=== PATIENT | female | born 1985 | race African-American/Black ===

== ENCOUNTER 2017-12-18 19:53 | Emergency (ER) | payer SELFPAY ==
[~2017-12-18] VITALS: Ht 154.9 cm; Wt 46.0 kg
[2017-12-18 20:14] VITALS: BP 134/71; PULSE 89; RESP 16; TEMP 99.4
[2017-12-18] MEDS ORDERED: SODIUM CHLOR 0.9% 1000 ML INJ 1,000 ML IV SCH (20:35)
[2017-12-18] MEDS ORDERED: ONDANSETRON HCL 4 MG/2 ML VIAL IVP ONE (20:45)
[2017-12-18] MEDS ORDERED: SODIUM CHLORIDE 0.9% FLUSH 10 ML FLUSH IV FLUSH PRN (20:45)
--- NOTE | 2017-12-18 20:47 | PD ---
HPI Chief Complaint: Abdominal Pain Time Seen by Provider: 20:30 Travel History International Travel<30 days: No Contact w/Intl Traveler<30days: No Traveled to known affect area: No History of Present Illness HPI 32 YO F with PMH of asthma, iron deficiency anemia presents to the ED for evaluation of 2 week history of intermittent lower abdominal pain, dysuria, nausea. Pain is described as cramping, excruciating, rate 10/10 maximally. Patient can identify no alleviating or exacerbating factors. She denies fever, chills, vomiting, changes in bowel habits, vaginal bleeding. She endorses clear vaginal discharge. She endorses history of x 4. No treatment attempted at home. PFSH Past Medical History Asthma: Yes COPD: No Diminished Hearing: No Genitourinary: Yes (HPV) Musculoskeletal: Yes (BRUSITISIS BOTH SHOULDERS) ?: Unknown LMP: 11/19/17 : 6 Para: 4 Miscarriage: 1 Ectopic : Yes Tubal Ligation: Yes Past Surgical History Section: Yes Social History Alcohol Use: Yes (OCCASIONALLY) Tobacco Use: Yes (08/21 PPD) Substance Use: No Allergies-Medications (Allergen,Severity, Reaction): Coded Allergies: mushroom (Unverified Allergy, Severe, TOUNGE SWELLS, RASH, 12/18/17) house dust (Unverified Allergy, Mild, SNEEZING, EYES WATER, 12/18/17) Reported Meds & Prescriptions Reported Meds & Active Scripts Active Metronidazole 500 Mg Tab 500 Mg PO BID 7 Days Review of Systems Except as stated in HPI: all other systems reviewed are Neg Physical Exam Narrative GENERAL: Well-nourished, well-developed thin -[place] female in no acute distress. SKIN: Focused skin assessment warm/dry. HEAD: Normocephalic. EYES: No scleral icterus. No injection or drainage. NECK: Supple, trachea midline. No JVD or lymphadenopathy. CARDIOVASCULAR: Regular rate and rhythm without murmurs, gallops, or rubs. RESPIRATORY: Breath sounds clear and equal bilaterally. No accessory muscle use. GASTROINTESTINAL: Abdomen soft, non-tender, nondistended. Tender in bilateral lower abdominal quadrants. Active bowel sounds. GENITOURINARY: Normal external genitalia without lesions or erythema. Vaginal vault without blood. Copious creamy white drainage noted. Cervical os was closed with scant creamy white drainage. Positive cervical motion tenderness. Uterus nontender and nonenlarged. Bilateral adnexa nontender without masses. MUSCULOSKELETAL: No cyanosis, or edema. BACK: Nontender without obvious deformity. No CVA tenderness. Data Data Last Documented VS Vital Signs Date Time Temp Pulse Resp B/P (MAP) Pulse Ox O2 Delivery O2 Flow Rate FiO2 12/18/17 20:19 16 12/18/17 20:14 99.4 89 134/71 (92) Orders Orders Complete Blood Count With Diff (12/18/17 20:35) Comprehensive Metabolic Panel (12/18/17 20:35) Urinalysis - C+S If Indicated (12/18/17 20:35) Iv Access Insert/Monitor (12/18/17 20:35) Ecg Monitoring (12/18/17 20:35) Oximetry (12/18/17 20:35) Ondansetron Inj (Zofran Inj) (12/18/17 20:45) Sodium Chlor 0.9% 1000 Ml Inj (Ns 1000 M (12/18/17 20:35) Sodium Chloride 0.9% Flush (Ns Flush) (12/18/17 20:45) Ed Urine Pregnancytest Poc (12/18/17 20:35) Gc And Chlamydia Pcr (12/18/17 21:44) Wet Prep Profile (12/18/17 21:44) Us Pelvis Comp W Doppler (12/18/17 ) Metronidazole (Flagyl) (12/18/17 23:15) Azithromycin Powd Pack (Zithromax Powd P (12/18/17 23:30) Ceftriaxone Inj (Rocephin Inj) (12/18/17 23:30) Lidocaine 1% Inj (50 Ml) (Xylocaine 1% I (12/18/17 23:30) Ed Discharge Order (12/18/17 23:20) Labs Laboratory Tests Test 12/18/17 20:50 12/18/17 22:58 White Blood Count 6.0 TH/MM3 Red Blood Count 3.96 MIL/MM3 Hemoglobin 10.0 GM/DL Hematocrit 30.3 % Mean Corpuscular Volume 76.7 FL Mean Corpuscular Hemoglobin 25.3 PG Mean Corpuscular Hemoglobin Concent 33.0 % Red Cell Distribution Width 16.6 % Platelet Count 319 TH/MM3 Mean Platelet Volume 7.4 FL Neutrophils (%) (Auto) 59.6 % Lymphocytes (%) (Auto) 31.1 % Monocytes (%) (Auto) 7.9 % Eosinophils (%) (Auto) 1.0 % Basophils (%) (Auto) 0.4 % Neutrophils # (Auto) 3.6 TH/MM3 Lymphocytes # (Auto) 1.9 TH/MM3 Monocytes # (Auto) 0.5 TH/MM3 Eosinophils # (Auto) 0.1 TH/MM3 Basophils # (Auto) 0.0 TH/MM3 CBC Comment DIFF FINAL Differential Comment Urine Color YELLOW Urine Turbidity HAZY Urine pH 5.5 Urine Specific [place] 1.026 Urine Protein TRACE mg/dL Urine Glucose (UA) NEG mg/dL Urine Ketones TRACE mg/dL Urine Occult Blood NEG Urine Nitrite NEG Urine Bilirubin NEG Urine Urobilinogen 2.0 MG/DL Urine Leukocyte Esterase TRACE Urine WBC 3 /hpf Urine Squamous Epithelial Cells 6 /hpf Urine Mucus FEW /lpf Microscopic Urinalysis Comment CULT NOT INDICATED Blood Urea Nitrogen 13 MG/DL Creatinine 0.75 MG/DL Random Glucose 96 MG/DL Total Protein 7.6 GM/DL Albumin 4.1 GM/DL Calcium Level 8.4 MG/DL Alkaline Phosphatase 62 U/L Aspartate Amino Transf (AST/SGOT) 15 U/L Alanine Aminotransferase (ALT/SGPT) 18 U/L Total Bilirubin 0.4 MG/DL Sodium Level 140 MEQ/L Potassium Level 3.6 MEQ/L Chloride Level 106 MEQ/L Carbon Dioxide Level 25.4 MEQ/L Anion Gap 9 MEQ/L Estimat Glomerular Filtration Rate 107 ML/MIN Clue Cells (Wet Prep) PRESENT Vaginal Trichomonas (Wet Prep) NONE SEEN Vaginal Yeast (Wet Prep) NONE SEEN Chlamydia trachomatis DNA (PCR) NOT DETECTED Neisseria gonorrhoeae DNA (PCR) NOT DETECTED MDM Medical Decision Making Medical Screen Exam Complete: Yes Emergency Medical Condition: Yes Differential Diagnosis UTI versus STD versus BV versus fibroid versus versus ovarian torsion versus PID versus other Narrative Course 32 YO F with PMH of asthma, iron deficiency anemia presents to the ED for evaluation of 2 week history of intermittent lower abdominal pain, dysuria, nausea. She endorses clear vaginal discharge. She endorses history of C- section x 4. Vitals reviewed. On exam the patient has tenderness in the bilateral lower quadrants. Pelvic exam reveals positive cervical motion tenderness and thick white discharge. IV was established. Patient was administered 1 L normal saline, 4 mg Zofran. CBC: WBC 6.0. Hemoglobin 10.0. CMP: No concerning abnormalities. UA: No culture indicated. Wet prep positive for clue cells. Serology pending. Ultrasound of the pelvis reveals 3.8 cm uterine fibroid. Ovoid 1 cm right ovarian cyst. Positive blood flow to both ovaries per radiology read. Patient agrees to empiric treatment for gonorrhea and chlamydia. She was administered 1 g azithromycin p.o., 250 mg ceftriaxone IM and first dose of Flagyl was administered in the ED. She is prescribed Flagyl 500 mg twice daily 7 days. She is instructed to abstain from sex, notify all partners, follow with the health department in 1 week for test of cure. She should follow-up with a animal feeder regarding the fibroid. She indicated understanding of the instructions and is agreeable to the care plan. The patient is stable and discharged home. Diagnosis Primary Impression: Bacterial vaginosis Additional Impression: Uterine fibroid Qualified Codes: D25.9 - Leiomyoma of uterus, unspecified Referrals: [facility] Additional Instructions: Rest, hydrate. Begin antibiotics tomorrow and take them until every pill is gone. Abstain from sex until test of cure is proven at the health department in 1 week. Notify all sexual partners of symptoms and treatment. Follow-up with the health department and animal feeder as discussed. Return to the ED for worsening symptoms or any urgent or emergent medical condition. Med/Other Pt SpecificInfo: Prescription(s) given Scripts Metronidazole (Metronidazole) 500 Mg Tab 500 MG PO BID for Infection for 7 Days, #14 TAB 0 Refills Prov: Sole Neal MD 12/18/17 Disposition: 01 DISCHARGE HOME Condition: Stable Gabrielle Garcia December 18, 2017 20:47
[2017-12-18 21:06] LABS: AUTOMATED NEUTROPHIL # 3.6 TH/MM3 (1.8-7.7); BASOPHIL % 0.4 % (0.0-2.0); EOSINOPHIL # 0.1 TH/MM3 (0-0.4); HEMATOCRIT 30.3 % (35.0-46.0); LYMPH % 31.1 % (9.0-44.0); LYMPHOCYTE # 1.9 TH/MM3 (1.0-4.8); MEAN CELL VOLUME 76.7 FL (80.0-100.0); MEAN CORPUSCULAR HEMOGLOBIN 25.3 PG (27.0-34.0); MEAN PLATELET VOLUME 7.4 FL (7.0-11.0); MONO % 7.9 % (0.0-8.0); MONOCYTE # 0.5 TH/MM3 (0-0.9); NEUT % 59.6 % (16.0-70.0); PLATELET COUNT 319 TH/MM3 (150-450); RED BLOOD COUNT 3.96 MIL/MM3 (4.00-5.30); RED CELL DISTRIBUTION WIDTH 16.6 % (11.6-17.2)
[2017-12-18 21:15] LABS: BILIRUBIN, URINE NEG (NEG); BLOOD, URINE NEG (NEG); GLUCOSE,URINE NEG (NEG); KETONE, URINE TRACE mg/dL (NEG); MUCUS URINE FEW /lpf (OCC); NITRITE,URINE NEG (NEG); PH, URINE 5.5 (5.0-8.5); SQUAMOUS EPITHELIAL CELL URINE 6 /hpf (0-5); URINE COLOR YELLOW (YELLW/STRAW); URINE LEUKOCYTE ESTERASE TRACE (NEG)
[2017-12-18 21:24] LABS: ALBUMIN 4.1 GM/DL (3.4-5.0); AST (GOT) 15 U/L (15-37); BICARBONATE 25.4 MEQ/L (21.0-32.0); BLOOD UREA NITROGEN 13 MG/DL (7-18); CALCIUM 8.4 MG/DL (8.5-10.1); CHLORIDE 106 MEQ/L (98-107); CREATININE 0.75 MG/DL (0.50-1.00); GLOMERULAR FILTRATION RATE 107 ML/MIN (>89); GLUCOSE,RANDOM 96 MG/DL (74-106); SODIUM (NA) 140 MEQ/L (136-145)
[2017-12-18 21:25] LABS: ALT (GPT) 18 U/L (10-53)
[2017-12-18 21:27] LABS: ALKALINE PHOSPHATASE 62 U/L (45-117); TOTAL BILIRUBIN ADULT 0.4 MG/DL (0.2-1.0); TOTAL PROTEIN 7.6 GM/DL (6.4-8.2)
--- NOTE | 2017-12-18 22:50 | RADRPT ---
EXAM DATE/TIME: 12/18/2017 22:07 [place] COMPARISON: No previous studies available for comparison. INDICATIONS : Pelvic pain. MEDICAL HISTORY : Glasses. Asthma. Ectopic . HPV. Bursitis both shoulders. SURGICAL HISTORY : Tubal ligation. section. ENCOUNTER: Initial ACUITY: 1 week PAIN SCORE: 2/10 LOCATION: Bilateral pelvis MEASUREMENTS: UTERUS: 8.1 x 6.5 x 5.0 cm ENDOMETRIAL STRIPE: 5 mm RIGHT OVARY: 4.9 x 4.1 x 4.0 cm LEFT OVARY: 3.3 x 2.0 x 1.8 cm FINDINGS: Uterine mass most characteristic of fibroid measuring up to 3.8 cm in diameter. 4.1 cm right ovarian cyst. Left ovary unremarkable. Positive blood flow to both ovaries. No free fluid. CONCLUSION: 1. 3.8 cm uterine fibroid. 2. Ovoid 1 cm right ovarian cyst. Positive blood flow to both ovaries. Herbie Villagran MD on December 18, 2017 at 22:47 Board Certified Radiologist. This report was verified electronically.
[2017-12-18] MEDS ORDERED: metroNIDAZOLE 500 MG TAB PO ONE (23:15)
[2017-12-18] MEDS ORDERED: METR1TAB76 PO (23:19)
[2017-12-18] MEDS ORDERED: LIDOCAINE HCL 1% 50 ML VIAL IM ONE (23:30)
[2017-12-18] MEDS ORDERED: AZITHROMYCIN PWD FOR SUSP 1 GM PACKET PO ONE (23:30)
[2017-12-18] MEDS ORDERED: cefTRIAXone 250 MG VIAL IM ONE (23:30)
== END 2017-12-19 00:31 | disposition home or self-care (01) ==
LOC: NEPE 19:53
DX: N76.0 Acute vaginitis (principal); B96.89 Other specified bacterial agents as the cause of diseases classified elsewhere; D25.9 Leiomyoma of uterus, unspecified; N83.201 Unspecified ovarian cyst, right side; F17.200 Nicotine dependence, unspecified, uncomplicated; R10.2 Pelvic and perineal pain
CPT/HCPCS: 76856; 80053; 81001; 84703; 85025; 87210; 87491; 87591; 93975; 96361; 96372; 96374; 99284; J0696; J2405; J7030